=== PATIENT | female | born 1955 | race Caucasian/White ===

== ENCOUNTER → 2016-08-22 | Emergency (ER) | payer OTHER ==
[~2016-08-22] VITALS: Ht 160 cm; Wt 90.7 kg
[~2016-08-22] MED LIST: ATIVAN2 MG ORAL; HYDROCODON-ACE1 EA15 ORAL; KEFLEX500 MG ORAL; Norco 5mg/325mg tab ORAL ONE; OXYCONTIN20 MG ORAL; SYNTHROID300 MCG ORAL
[2016-08-22 04:01] VITALS: BP 132/76
--- NOTE | 2016-08-22 04:04 | Emergency Room Report ---
History of Present Illness General Chief Complaint: Back Pain-No Injury Source: Patient Present Illness HPI Is a 61-year-old female with a history of spinal stenosis, 6 herniated disc, with PMI of 35. She presents with chief complaint of lower back pain. Pain began to both legs. No incontinence of bowel or urine. She said that she's been walking too much yesterday and now having pain. Took ibuprofen without relief. She said that her primary care DrParvez is being flagged by the pharmacist for prescribing medication recklessly. This is per patient. She's been out of her pain medication for several months now. Denies any other complaint. Pain is 10 out of 10. No relief with ibuprofen. Allergies: Coded Allergies: No Known Allergies (Unverified , 08/22/16) Patient History Past Medical History: see triage record, old chart reviewed Past Surgical History: other Pertinent Family History: none Social History: Denies: smoking Now: No Immunizations: other Reviewed Nursing Documentation: PMH: Agreed, PSxH: Agreed Nursing Documentation-PMH Hx Neurological Problems: Yes - SCIATICA,BULGING DISC,SPINAL STENOSIS Review of Systems Eye: Denies: blurred vision, eye pain ENT: Denies: ear pain, nose congestion, throat swelling Respiratory: Denies: cough, shortness of breath Cardiovascular: Denies: chest pain, palpitations Gastrointestinal: Denies: abdominal pain, diarrhea, nausea, vomiting Musculoskeletal: Reports: back pain, Denies: joint pain Skin: Denies: rash Neurological: Denies: headache, numbness Endocrine: Denies: increased thirst, increased urine Hematologic/Lymphatic: Denies: easy bruising All Other Systems: negative except mentioned in HPI Physical Exam Vital Signs Date Time Temp Pulse Resp B/P Pulse Ox O2 Delivery O2 Flow Rate FiO2 08/22/16 03:47 97.9 73 16 124/74 97 Room Air vitals normal Sp02 EP Interpretation: reviewed, normal General Appearance: well appearing, no apparent distress, alert Head: normocephalic, atraumatic Eyes: bilateral eye EOMI, bilateral eye PERRL ENT: hearing grossly normal, normal pharynx Neck: full range of motion, supple, no meningismus Respiratory: chest non-tender, lungs clear, normal breath sounds Cardiovascular #1: regular rate, rhythm, no murmur Gastrointestinal: normal bowel sounds, non tender, no mass, no organomegaly, no bruit, non-distended Musculoskeletal: back normal, gait/station normal, normal range of motion, other - Diffuse tenderness. No step-off. No anesthesia. Negative straight- leg raise. Neurologic: alert, oriented x3 Psychiatric: mood/affect normal Skin: warm/dry Medical Decision Making Diagnostic Impression: Primary Impression: Back pain Qualified Codes: M54.5 - Low back pain Additional Impression: UTI (urinary tract infection) Qualified Codes: N30.00 - Acute cystitis without hematuria ER Course Patient presents with lower back pain. No evidence of cauda equina syndrome, spinal after abscess or neoplastic process. He may have a urinary tract infection. We'll go ahead and cover with antibiotics. She has been getting monthly prescription for narcotics, soma, and Xanax. She said that her Dr. switch her pain medication to OxyContin. She has been unable to fill this for a month. She may excuse about not able to see her doctor until 2 weeks from now. She also claimed that her Dr. been flagged by the pharmacy and she has to get a new doctor and back won't be until August 27. Her story does not make sense. She is requesting IV narcotics. R. he gave her oral medication. I see no knee for IV or IM medication. We'll discharge home to prescription for [place]. Last Vital Signs Date Time Temp Pulse Resp B/P Pulse Ox O2 Delivery O2 Flow Rate FiO2 08/22/16 03:47 97.9 73 16 124/74 97 Room Air Status: improved Disposition: HOME, SELF-CARE Condition: Stable Scripts Cephalexin* (KEFLEX*) 500 Mg Capsule 500 MG ORAL TID, #21 CAP 0 Refills Prov: TUSHAR PENALOZA M.D. 08/22/16 Hydrocodone/Acetaminophen 5-325* (HYDROCODONE/ACETAMINOPHEN 5-325*) 1 Each Tablet 1 TAB ORAL Q6H Y for For Pain, #10 TAB 0 Refills Prov: TUSHAR PENALOZA M.D. 08/22/16 Patient Instructions: Back Pain, Adult Additional Instructions: Followup with your DrParvez in a few days for refills on your medication. You can have your DrParvez changed the prescription also. Return if symptom worsen. TUSHAR PENALOZA M.D. Aug 22, 2016 04:04
[2016-08-22 04:21] LABS: APPEARANCE,URINE SLIGHTLY CLOUDY; KETONES,URINE NEGATIVE (NEGATIVE); LEUKOCYTE ESTERASE ,URINE 2+ (NEGATIVE); NITRITE,URINE NEGATIVE (NEGATIVE); PH,URINE 6 (4.5-8.0); PROTEIN,URINE NEGATIVE (NEGATIVE); UROBILINOGEN,URINE NORMAL MG/DL (0.0-1.0)
[2016-08-22 04:26] LABS: BACTERIA,URINE MANY /HPF; RBC,URINE 0-2 /HPF (0 - 2); SQUAMOUS EPITHELIAL CELL,UR MANY /LPF (NONE/OCC)
[2016-08-22 05:43] VITALS: BP 126/74
== END | disposition home or self-care (01) ==
LOC: EDBD 03:56 → EMR 04:30
DX: N30.00 Acute cystitis without hematuria (principal); M54.5 Low back pain
CPT/HCPCS: 80300; 81003; 87086; 87181; 99284

== ENCOUNTER 2016-09-21 10:53 | Emergency (ER) | payer OTHER ==
[~2016-09-21] VITALS: Ht 170.2 cm; Wt 104.3 kg
[~2016-09-21 10:53] MED LIST changes: -Norco 5mg/325mg tab ORAL ONE
[2016-09-21] MEDS ORDERED: Albuterol ud Inhalation HHN ONE (11:00)
[2016-09-21] MEDS ORDERED: Morphine Sulfate 4mg/ml Inj IM ONE (11:00)
[2016-09-21] MEDS ORDERED: PredniSONE 20mg tab ORAL ONE (11:00)
[2016-09-21] MEDS ORDERED: Ipratropium 0.02% Inh Soln 2.5ml UD HHN ONE (11:00)
[2016-09-21] MEDS ORDERED: PROMETHAZI6.25 MG/1 ORAL (11:58)
[2016-09-21] MEDS ORDERED: ALBUTEROL SULF8.5 GM INH (11:58)
[2016-09-21] MEDS ORDERED: PREDNISONE20 MG ORAL (11:58)
[2016-09-21 12:05] VITALS: BP 107/68
--- NOTE | 2016-09-21 14:23 | Emergency Room Report ---
History of Present Illness General Chief Complaint: Pain Source: Patient, EMS Present Illness HPI 61-year-old female presents to ED for evaluation of back pain and cough. Patient brought by ambulance stating that she is having sciatica pain running down her left leg. Pain is sharp, 10 out of 10, nonradiating. States it is too painful to walk. Patient also complaining of cough and congestive symptoms. States she needs a breathing treatment. Notes prior history of bronchitis. Denies history of asthma. Denies fevers or chills. Denies chest pain or shortness of breath. No other aggravating relieving factors. Denies any other associated symptoms Allergies: Coded Allergies: No Known Allergies (Unverified , 08/22/16) Patient History Past Medical History: other - sciatica Past Surgical History: none Pertinent Family History: none Social History: Denies: alcohol use, drug use, smoking Now: No Immunizations: UTD Reviewed Nursing Documentation: PMH: Agreed, PSxH: Agreed Nursing Documentation-PMH Past Medical History: No History, Except For Review of Systems All Other Systems: negative except mentioned in HPI Physical Exam Vital Signs Date Time Temp Pulse Resp B/P Pulse Ox O2 Delivery O2 Flow Rate FiO2 09/21/16 10:41 98.2 88 16 130/78 100 Room Air Sp02 EP Interpretation: reviewed, normal General Appearance: no apparent distress, alert, GCS 15, non-toxic, obese Head: normocephalic Eyes: bilateral eye PERRL, bilateral eye normal inspection ENT: normal ENT inspection Neck: normal inspection Respiratory: chest non-tender, normal breath sounds, speaking full sentences, wheezing Cardiovascular #1: normal inspection Gastrointestinal: normal inspection Rectal: deferred Genitourinary: no CVA tenderness Musculoskeletal: tender - paraspinal lumbar tenderness Neurologic: alert, oriented x3, responsive, motor strength/tone normal, sensory intact, speech normal Psychiatric: normal inspection Skin: normal inspection Lymphatic: normal inspection Medical Decision Making Diagnostic Impression: Primary Impression: Sciatica Qualified Codes: M54.32 - Sciatica, left side Additional Impressions: Bronchitis Opioid dependence Qualified Codes: F11.29 - Opioid dependence with unspecified opioid-induced disorder ER Course Hospital Course 61-year-old female presents to ED complaining of cough, wheezing. c/o sciatica pain Differential diagnoses include: URI, bronchitis, asthma/COPD, pneumonia Clinical course Patient placed on stretcher. After initial history and physical I ordered prednisone and nebulizer treatment. Upon reassessment patient states cough and symptoms have improved. Findings consistent with bronchitis. Patient has been here multiple times for back pain. Patient states she's currently not receiving medication from her PMD but CURES shows extensive narcotic prescriptions filled recently. Patient denies having such prescriptions. I agree provide her with one dose of morphine IM here but she would not receive any prescriptions. Patient understands and agrees to discharge Diagnosis - bronchitis , sciatica, opioid dependence Stable and discharged home with prescriptions for Rx prednisone, promethazine, albuterol. Instructed to followup with PMD. Return to ED if symptoms recur or worsen Last Vital Signs Date Time Temp Pulse Resp B/P Pulse Ox O2 Delivery O2 Flow Rate FiO2 09/21/16 12:05 100 18 107/68 95 Room Air 09/21/16 12:05 98.3 Status: improved Disposition: HOME, SELF-CARE Condition: Stable Scripts Promethazine Hcl (PROMETHAZINE HCL*) 6.25 Mg/5 Ml Syrup 5 ML ORAL Q6H, #120 ML 0 Refills Prov: ZACKARY YANEZ M.D. 09/21/16 Prednisone* (PREDNISONE*) 20 Mg Tablet 40 MG ORAL DAILY, #10 TAB Prov: ZACKARY YANEZ M.D. 09/21/16 Albuterol Sulfate* (ALBUTEROL SULFATE MDI*) 8.5 Gm Hfa.aer.ad 2 PUFF INH Q4H Y for cough/wheezing, #1 EA 0 Refills Prov: ZACKARY YANEZ M.D. 09/21/16 Patient Instructions: Acute Bronchitis, [id number] ZACKARY YANEZ M.D. Sep 21, 2016 14:23
== END 2016-09-21 12:08 | disposition home or self-care (01) ==
LOC: EDBD 10:53 → EMR 11:09
DX: M54.32 Sciatica, left side (principal); J40 Bronchitis, not specified as acute or chronic
CPT/HCPCS: 94640; 96372; 99284; J2270

== ENCOUNTER 2016-09-29 10:54 | Emergency (ER) | payer OTHER ==
[~2016-09-29] VITALS: Ht 167.6 cm; Wt 117.9 kg
[~2016-09-29 10:54] MED LIST changes: +ALBUTEROL SULF8.5 GM INH; +PREDNISONE20 MG ORAL; +PROMETHAZI6.25 MG/1 ORAL
[2016-09-29 11:13] VITALS: BP 127/86
[2016-09-29] MEDS ORDERED: Oxycodone/Acetaminophen 5-325 ORAL ONE ×2 (11:15→12:45)
[2016-09-29 11:54] LABS: BASOPHILS % (AUTO) 0.7 % (0.0-2.0); EOSINOPHILS % (AUTO) 3.9 % (0.0-3.0); LYMPHOCYTES % (AUTO) 31.4 % (20.0-45.0); MEAN CORPUSCULAR HEMOGLOBIN 32.2 PG (27.0-31.0); MEAN CORPUSCULAR HGB CONC 32.9 G/DL (32.0-36.0); MEAN CORPUSCULAR VOLUME 98 FL (80-99); MEAN PLATELET VOLUME 7.2 FL (6.5-10.1); MONOCYTES % (AUTO) 6.9 % (1.0-10.0); NEUTROPHILS % (AUTO) 57.1 % (45.0-75.0); PLATELET COUNT 274 K/UL (150-450); RED CELL DISTRIBUTION WIDTH 11.6 % (11.6-14.8)
[2016-09-29 12:10] LABS: ALANINE AMINOTRANSFERASE 24 U/L (3-33); ALBUMIN/GLOBULIN RATIO 1.1 (1.0-2.7); ANION GAP 12 (5-15); ASPARTATE AMINO TRANSFERASE 28 U/L (5-40); CALCIUM 8.6 mg/dL (8.6-10.2); CARBON DIOXIDE 28 mEQ/L (20-30); CHLORIDE 104 mEQ/L (98-107); CREATININE 0.5 mg/dL (0.5-0.9); GLOMERULAR FILTRATION RATE > 60 mL/min (>60); HEMOLYSIS 38; LIPASE 57 U/L (< 60); POTASSIUM 3.1 mEQ/L (3.4-4.9); SODIUM 144 mEQ/L (135-145); TOTAL PROTEIN 6.8 g/dL (6.6-8.7)
[2016-09-29 13:23] VITALS: BP 129/84
[2016-09-29 13:24] VITALS: BP 129/84
--- NOTE | 2016-09-29 14:37 | Emergency Room Report ---
History of Present Illness General Chief Complaint: Diarrhea Source: Patient Present Illness HPI 61-year-old female presents to ED for evaluation. states for one day she is having multiple episodes of diarrhea. Denies any fevers or chills. Denies nausea or vomiting. Denies sick contacts recent travel. Denies recent antibiotic use. Patient is also complaining of back pain. 9/10, sharp, radiating down both legs. Patient states she has multiple bulging discs with sciatica. States her doctor is on vacation and she is not received medication in months. No other aggravating or relieving factors. Denies any other associated symptoms Allergies: Coded Allergies: No Known Allergies (Unverified , 08/22/16) Patient History Past Medical History: HTN, other - sciatica Past Surgical History: none Pertinent Family History: none Social History: Denies: alcohol use, drug use, smoking Now: No Immunizations: UTD Reviewed Nursing Documentation: PMH: Agreed, PSxH: Agreed Nursing Documentation-PMH Hx Cardiac Problems: Yes Hx Hypertension: Yes Hx Neurological Problems: Yes - SCIATICA,BULGING DISC,SPINAL STENOSIS Review of Systems All Other Systems: negative except mentioned in HPI Physical Exam Vital Signs Date Time Temp Pulse Resp B/P Pulse Ox O2 Delivery O2 Flow Rate FiO2 09/29/16 10:46 97.9 80 16 130/82 98 Room Air Sp02 EP Interpretation: reviewed, normal General Appearance: no apparent distress, alert, GCS 15, non-toxic, obese Head: normocephalic, atraumatic Eyes: bilateral eye PERRL, bilateral eye normal inspection ENT: hearing grossly normal, normal pharynx, no angioedema, normal voice Neck: full range of motion, supple/symm/no masses Respiratory: chest non-tender, lungs clear, normal breath sounds, speaking full sentences Cardiovascular #1: regular rate, rhythm, no edema Cardiovascular #2: 2+ carotid (R), 2+ carotid (L), 2+ radial (R), 2+ radial (L) , 2+ dorsalis pedis (R), 2+ dorsalis pedis (L) Gastrointestinal: normal bowel sounds, non tender, soft, non-distended, no guarding, no rebound Rectal: deferred Genitourinary: normal inspection, no CVA tenderness Musculoskeletal: back normal, gait/station normal, normal range of motion, non- tender Neurologic: alert, oriented x3, responsive, motor strength/tone normal, sensory intact, speech normal Psychiatric: judgement/insight normal, memory normal, mood/affect normal, no suicidal/homicidal ideation Reflexes: 3+ bicep (R), 3+ bicep (L), 3+ tricep (R), 3+ tricep (L), 3+ knee (R) , 3+ knee (L) Skin: normal color, no rash, warm/dry, well hydrated Lymphatic: no adenopathy Medical Decision Making Diagnostic Impression: Primary Impression: Sciatica Qualified Codes: M54.31 - Sciatica, right side; M54.32 - Sciatica, left side Additional Impression: Gastroenteritis ER Course Hospital Course 61-year-old F presents to ED with multiple episodes of diarrhea. also c/o back pain differential diagnosis: gastritis, SBO, cholecystits, gastroenteritis Clinical course Patient placed on stretcher. On night monitor. After initial history and physical I ordered labs, IV fluids, Zofran and pepcid Labs - no leukocytosis, electrolytes ok, hb/hct stable, lfts ok Patient has been here multiple times for pain-related complaints. Patient always provide similar story of her doctor is not available I reviewed CURES; patient received 120 tablets of tramadol in August. Patient denies receiving such medications Agreed to provide her with by mouth medication here. Patient understands she will not receive prescriptions for pain I feel this is a highly complex case requiring extensive working including EKG/ Rhythm strip, Xray/CT/US, Blood/urine lab work, repeat exams while in ED, and administration of strong opiates/narcotics for pain control, admission to hospital or close patient follow up. Diagnosis - gastroenteritis, opioid dependence Stable and discharged to home. Followup with PMD. Return to ED if symptoms recur or worsen Labs Test 09/29/16 11:36 White Blood Count 7.0 K/UL (4.8-10.8) Red Blood Count 4.00 M/UL (4.20-5.40) Hemoglobin 12.9 G/DL (12.0-16.0) Hematocrit 39.2 % (37.0-47.0) Mean Corpuscular Volume 98 FL (80-99) Mean Corpuscular Hemoglobin 32.2 PG (27.0-31.0) Mean Corpuscular Hemoglobin Concent 32.9 G/DL (32.0-36.0) Red Cell Distribution Width 11.6 % (11.6-14.8) Platelet Count 274 K/UL (150-450) Mean Platelet Volume 7.2 FL (6.5-10.1) Neutrophils (%) (Auto) 57.1 % (45.0-75.0) Lymphocytes (%) (Auto) 31.4 % (20.0-45.0) Monocytes (%) (Auto) 6.9 % (1.0-10.0) Eosinophils (%) (Auto) 3.9 % (0.0-3.0) Basophils (%) (Auto) 0.7 % (0.0-2.0) Sodium Level 144 mEQ/L (135-145) Potassium Level 3.1 mEQ/L (3.4-4.9) Chloride Level 104 mEQ/L (98-107) Carbon Dioxide Level 28 mEQ/L (20-30) Anion Gap 12 (5-15) Blood Urea Nitrogen 12 mg/dL (7-23) Creatinine 0.5 mg/dL (0.5-0.9) Estimat Glomerular Filtration Rate > 60 mL/min (>60) Glucose Level 97 mg/dL (74-106) Calcium Level 8.6 mg/dL (8.6-10.2) Total Bilirubin 0.3 mg/dL (0.0-1.2) Aspartate Amino Transf (AST/SGOT) 28 U/L (5-40) Alanine Aminotransferase (ALT/SGPT) 24 U/L (3-33) Alkaline Phosphatase 44 U/L (35-104) Total Protein 6.8 g/dL (6.6-8.7) Albumin 3.6 g/dL (3.5-5.2) Globulin 3.2 g/dL Albumin/Globulin Ratio 1.1 (1.0-2.7) Lipase 57 U/L (< 60) Last Vital Signs Date Time Temp Pulse Resp B/P Pulse Ox O2 Delivery O2 Flow Rate FiO2 09/29/16 13:24 97.8 85 16 129/84 99 Room Air Status: improved Disposition: HOME, SELF-CARE Condition: Stable Referrals: [facility],REFERRING (PCP) Patient Instructions: Viral Gastroenteritis, Adult ZACKARY YANEZ M.D. Sep 29, 2016 14:37
[2016-09-30] MEDS ORDERED: GABAPENTIN300 MG ORAL (13:03)
[2016-09-30] MEDS ORDERED: IBUPROFEN600 MG ORAL (13:03)
== END 2016-09-29 13:26 | disposition home or self-care (01) ==
LOC: EDBD 10:54 → EMR 12:07
DX: K52.9 Noninfective gastroenteritis and colitis, unspecified (principal); M54.32 Sciatica, left side; M54.31 Sciatica, right side; M48.00 Spinal stenosis, site unspecified; I10 Essential (primary) hypertension
CPT/HCPCS: 36415; 80053; 83690; 85025; 96360

== ENCOUNTER 2016-09-30 12:21 | Emergency (ER) | payer OTHER ==
[~2016-09-30] VITALS: Ht 162.6 cm; Wt 72.6 kg
[2016-09-30] MEDS ORDERED: Norco 7.5mg/325mg tab ORAL ONE (12:30)
[2016-09-30] MEDS ORDERED: Ketorolac 60mg Inj IM ONE (12:30)
--- NOTE | 2016-09-30 12:40 | Emergency Room Report ---
History of Present Illness General Chief Complaint: Back Pain-No Injury Source: Patient Present Illness HPI The patient is a 61-year-old female with a history of chronic lower back pain with sciatica presenting for back pain. She has been seen in this emergency department for the same complaint before. She states that she ran out of pain medications and her doctor is on vacation. She usually takes Percocet or OxyContin. Pain is described as a 10 out of 10 sharp sensation to the mid lower back and radiates down both legs. She denies any numbness or tingling. Pain worse with movement. She denies any other symptoms including N, V, F, chills, abd pain, SOB Allergies: Coded Allergies: No Known Allergies (Unverified , 08/22/16) Patient History Past Medical History: see triage record Pertinent Family History: none Reviewed Nursing Documentation: PMH: Agreed, PSxH: Agreed Nursing Documentation-PMH Hx Hypertension: Yes Review of Systems All Other Systems: negative except mentioned in HPI Physical Exam Vital Signs Date Time Temp Pulse Resp B/P Pulse Ox O2 Delivery O2 Flow Rate FiO2 09/30/16 12:09 98.1 68 16 122/80 98 Room Air Sp02 EP Interpretation: reviewed, normal General Appearance: no apparent distress, alert, GCS 15, non-toxic Head: normocephalic, atraumatic Eyes: bilateral eye PERRL, bilateral eye normal inspection ENT: hearing grossly normal, normal pharynx, no angioedema, normal voice Gastrointestinal: normal bowel sounds, non tender, soft, non-distended, no guarding, no rebound Musculoskeletal: back normal, gait/station normal, normal range of motion, tender - Diffuse TTP over bilat lumbar paraspinal muscles Neurologic: alert, oriented x3, responsive, motor strength/tone normal, sensory intact, normal gait, speech normal Psychiatric: judgement/insight normal, memory normal, mood/affect normal, no suicidal/homicidal ideation Skin: normal color, no rash, warm/dry, well hydrated Medical Decision Making PA Attestation Dr. Myers is my supervising physician. Patient management was discussed with my supervising physician Diagnostic Impression: Primary Impression: Chronic back pain Qualified Codes: M54.41 - Lumbago with sciatica, right side; M54.42 - Lumbago with sciatica, left side; G89.29 - Other chronic pain Additional Impression: Opioid dependence Qualified Codes: F11.29 - Opioid dependence with unspecified opioid-induced disorder ER Course The patient is a 61-year-old female presenting with lower back pain Ddx considered include but not limited to lumbar strain, degenerative disease, epidural abscess, cauda equina, chronic pain, narcotic dependency. Physical exam: No apparent distress There is diffuse tenderness to palpation over the lumbar paraspinal muscles. No midline tenderness or step-offs. Normal gait The patient is given Toradol and [place]. The patient states that she needs Dilaudid or Percocet and if not given to her, she will return. She states that her primary doctor is on vacation and usually gives her Percocet. She has presented with the same history in the past.. To be discharged home and told that she needs to followup with pain management. Last Vital Signs Date Time Temp Pulse Resp B/P Pulse Ox O2 Delivery O2 Flow Rate FiO2 09/30/16 12:09 98.1 68 16 122/80 98 Room Air Status: improved Disposition: HOME, SELF-CARE Condition: Stable Scripts Gabapentin* (GABAPENTIN*) 300 Mg Capsule 300 MG ORAL THREE TIMES A DAY, #30 CAP 0 Refills Prov: OLUANESTELLE P.A. 09/30/16 Ibuprofen* (MOTRIN*) 600 Mg Tablet 600 MG ORAL Q8H Y for For Pain, #30 TAB 0 Refills Prov: OLUANESTELLE P.A. 09/30/16 ESTELLE GRIMM P.AParvez Sep 30, 2016 12:40
[2016-09-30] MEDS ORDERED: GABAPENTIN300 MG ORAL (13:03)
[2016-09-30] MEDS ORDERED: IBUPROFEN600 MG ORAL (13:03)
[2016-09-30 13:10] VITALS: BP 122/80
== END 2016-09-30 13:37 | disposition home or self-care (01) ==
LOC: EDBD 12:21 → EMR 12:59
DX: G89.29 Other chronic pain (principal); M54.42 Lumbago with sciatica, left side; M54.41 Lumbago with sciatica, right side; I10 Essential (primary) hypertension; F11.20 Opioid dependence, uncomplicated
CPT/HCPCS: 96372; 99284